=== PATIENT | male | born 1955 | race Caucasian/White ===

== ENCOUNTER 2017-03-06 12:28 | Observation (INO) | payer BC ==
[~2017-03-06] VITALS: Ht 193 cm; Wt 175.4 kg
[~2017-03-06 12:28] MED LIST: AMLODIPINE BESY10 MG PO; ENDOCET 5-3251 EACH PO; FERROUS SULFAT325 MG PO; FLOMAX0.4 MG PO; JANUMET XR 50-1 EAC1 PO; LISINOPRIL20 MG PO; LOVENOX40 MG/0.4 SC; MELOXICAM7.5 MG PO; OMEPRAZOLE20 MG PO; OXYCONTIN10 MG PO; PERCOCET 5/31 TABLET PO; PRAVASTATIN SOD40 MG PO; SENNA-TIME S T1 EACH PO; ULTRAM50 MG PO; VICTOZA 2-0.6 MG/0.1 SC; ZOFRAN ODT8 MG PO
[2017-03-06 12:52] LABS: HEMATOCRIT 43.7 % (38.0-50.0); MCH 29.2 PG (29.0-34.0); MCHC 33.4 G/DL (30.0-36.0); MCV 87.4 FL (86-99); MEAN PLAT.VOLUME 11.9 uM^3 (9.0-12.4); PLATELET COUNT 122 K/uL (156-360); RBC DIS.WIDTH-CV 14.3 % (11.8-14.6); RBC DIS.WIDTH-SD 45.8 % (39-53); WHITE BLOOD COUNT 7.1 K/uL (4.1-10.2)
[2017-03-06 13:00] LABS: CHLORIDE 106 mEq/L (99-109); POTASSIUM 3.9 mEq/L (3.7-5.4); SODIUM 144 mEq/L (136-147)
[2017-03-06 13:02] LABS: GLUCOSE 163 mg/dL (70-99)
[2017-03-06 13:03] LABS: ANION GAP 11 MEQ/L (2-14)
[2017-03-06 13:06] LABS: GFR ESTIMATE (CALCULATED) > 59 mL/min/; UREA NITROGEN (BUN) 20 mg/dL (9-23)
[2017-03-06 13:14] LABS: TROP-I INTERPRETATION NEGATIVE; TROPONIN-I < 0.01 ng/mL (0.0-0.30)
[2017-03-06] MEDS ORDERED: HUMALOG100 UNIT/2 SC (17:03)
[2017-03-06] MEDS ORDERED: TOUJEO SOL300 UNIT/1 SC (17:04)
[2017-03-06 17:34] LABS: TROP-I INTERPRETATION NEGATIVE; TROPONIN-I < 0.01 ng/mL (0.0-0.30)
[2017-03-06 17:36] LABS: HDL CHOLESTEROL 28 MG/DL (Desirable>=40); LDL CHOLESTEROL 67 mg/dL (Desirable<100); NON-HDL CHOLESTEROL 92 mg/dL (Desirable<160); TOTAL CHOLESTEROL 120 mg/dL (Desirable<200); TRIGLYCERIDES 124 MG/DL (Normal: <150)
[2017-03-06 17:42] LABS: Estimated Average Glucose 200 mg/dL (70-123); HEMOGLOBIN A1c (GLYCOHEMOGLOB) 8.6 % HGB (Below 5.7)
[2017-03-06 18:05] VITALS: BP 170/94
[2017-03-06 21:17] VITALS: BP 164/79
[2017-03-07 00:03] VITALS: BP 137/68
[2017-03-07 00:05] LABS: TROP-I INTERPRETATION NEGATIVE; TROPONIN-I < 0.01 ng/mL (0.0-0.30)
[2017-03-07 04:30] VITALS: BP 179/89
[2017-03-07 08:10] VITALS: BP 205/104
[2017-03-07 08:38] LABS: POINT-OF-CARE METER ID UU13113831
[2017-03-07 11:19] VITALS: BP 180/85
[2017-03-07] MEDS ORDERED: APRESOLINE50 MG PO (12:00)
[2017-03-07] MEDS ORDERED: LOPRESSOR25 MG PO (12:01)
[2017-03-07] MEDS ORDERED: OMEPRAZOLE40 M1 PO (12:02)
[2017-03-07] MEDS ORDERED: AUGMENTIN875 MG PO (12:03)
[2017-03-07 12:38] VITALS: BP 163/83
== END 2017-03-07 14:20 | disposition home or self-care (01) ==
LOC: EME 12:28 → EDOF 16:29 → 5WEST 16:29 → EDOF 16:29 → ENRESERV 16:37 → 5WEST 18:02
PROVIDERS: Hospitalist
DX: R07.89 Other chest pain (principal); I10 Essential (primary) hypertension; L03.116 Cellulitis of left lower limb; K21.9 Gastro-esophageal reflux disease without esophagitis; R60.0 Localized edema; E11.65 Type 2 diabetes mellitus with hyperglycemia; I25.10 Atherosclerotic heart disease of native coronary artery without angina pectoris; E78.5 Hyperlipidemia, unspecified; I47.1 Supraventricular tachycardia; E66.01 Morbid (severe) obesity due to excess calories; Z68.41 Body mass index [BMI] 40.0-44.9, adult; F41.9 Anxiety disorder, unspecified; Z63.4 Disappearance and death of family member; Z91.19 Patient's noncompliance with other medical treatment and regimen; Z79.84 Long term (current) use of oral hypoglycemic drugs; Z79.82 Long term (current) use of aspirin
CPT/HCPCS: 71020; 71275; 80048; 80061; 82948; 83036; 83880; 84484; 85027; 85379; 93005; 93306; 93970; 99281; 99285; G0378; J0696; J1650; J1815; J2270; J7030; J7050

== ENCOUNTER 2017-04-25 07:05 | Emergency (ER) | payer BC ==
[~2017-04-25] VITALS: Ht 193 cm; Wt 177.9 kg
[~2017-04-25 07:05] MED LIST changes: +APRESOLINE50 MG PO; +AUGMENTIN875 MG PO; +HUMALOG100 UNIT/2 SC; +LOPRESSOR25 MG PO; +OMEPRAZOLE40 M1 PO; +TOUJEO SOL300 UNIT/1 SC
[2017-04-25 07:58] LABS: HEMATOCRIT 42.9 % (38.0-50.0); MCH 29.3 PG (29.0-34.0); MCHC 33.6 G/DL (30.0-36.0); MCV 87.4 FL (86-99); MEAN PLAT.VOLUME 12.2 uM^3 (9.0-12.4); PLATELET COUNT 126 K/uL (156-360); RBC DIS.WIDTH-CV 14.1 % (11.8-14.6); RBC DIS.WIDTH-SD 45.1 % (39-53); RED BLOOD COUNT 4.91 M/uL (4.00-5.50); WHITE BLOOD COUNT 8.4 K/uL (4.1-10.2)
[2017-04-25 08:10] LABS: PROTHROMBIN TIME 11.5 SEC (10.2-12.9)
[2017-04-25 08:12] LABS: PTT 28.4 SEC (25-37)
[2017-04-25 08:27] LABS: ANION GAP 9 MEQ/L (2-14); CHLORIDE 102 MEQ/L (99-109); POTASSIUM 3.7 MEQ/L (3.7-5.4); SAMPLE HEMOLYSIS CHECK 0; SAMPLE ICTERIC CHECK 0; SAMPLE LIPEMIA CHECK 0; SODIUM 139 MEQ/L (136-147)
[2017-04-25 08:33] LABS: GFR ESTIMATE (CALCULATED) > 59 mL/min/ (58.99-99999); GLUCOSE 159 mg/dL (70-99); UREA NITROGEN (BUN) 19 mg/dL (9-23)
[2017-04-25] MEDS ORDERED: OCEAN GEL14 GM BOTH NARES (08:40)
[2017-04-25] MEDS ORDERED: OCEAN NASAL 0.645 ML BOTH NARES (08:40)
[2017-04-25 08:55] VITALS: BP 158/85
[2017-04-27] MEDS ORDERED: APRESOLINE50 MG PO (13:22)
[2017-04-27] MEDS ORDERED: OMEPRAZOLE40 M1 PO (13:23)
[2017-04-27] MEDS ORDERED: LOPRESSOR25 MG PO (13:23)
== END 2017-04-25 08:56 | disposition home or self-care (01) ==
LOC: EME 07:05
PROVIDERS: Nurse Practitioner Family
DX: R04.0 Epistaxis (principal); I10 Essential (primary) hypertension; E11.65 Type 2 diabetes mellitus with hyperglycemia; D69.6 Thrombocytopenia, unspecified; Z79.4 Long term (current) use of insulin; E78.5 Hyperlipidemia, unspecified; K21.9 Gastro-esophageal reflux disease without esophagitis; Z96.651 Presence of right artificial knee joint
CPT/HCPCS: 80048; 85027; 85610; 85730; 99281; 99284

== ENCOUNTER → 2017-05-01 | Outpatient (CLI) | payer BC ==
[~2017-05-01] VITALS: Ht 193 cm; Wt 175.1 kg
[~2017-05-01] MED LIST changes: +OCEAN GEL14 GM BOTH NARES; +OCEAN NASAL 0.645 ML BOTH NARES
[2017-05-01 12:54] LABS: POINT-OF-CARE METER ID UU14107333
== END | disposition home or self-care (01) ==
LOC: AMB 04-24 13:00
PROVIDERS: Internal Medicine Gastroenterology
DX: Z12.11 Encounter for screening for malignant neoplasm of colon (principal); D12.3 Benign neoplasm of transverse colon; K29.70 Gastritis, unspecified, without bleeding; Z86.010 Personal history of colon polyps; K21.9 Gastro-esophageal reflux disease without esophagitis; R13.10 Dysphagia, unspecified; M19.90 Unspecified osteoarthritis, unspecified site; E78.5 Hyperlipidemia, unspecified; E11.9 Type 2 diabetes mellitus without complications; I10 Essential (primary) hypertension; Z96.651 Presence of right artificial knee joint
CPT/HCPCS: 82948; 88305; 88342 TC

== ENCOUNTER 2017-11-15 17:49 | Observation (INO) | payer BC ==
[~2017-11-15] VITALS: Ht 193 cm; Wt 177.6 kg
[~2017-11-15 17:49] MED LIST changes: -AMLODIPINE BESY10 MG PO; +LISINOPRIL-HCT1 EAC3 PO; -LISINOPRIL20 MG PO; +NORVASC2.5 MG PO
[2017-11-15 18:41] LABS: HEMATOCRIT 41.4 % (38.0-50.0); MCH 29.8 PG (29.0-34.0); MCHC 33.8 G/DL (30.0-36.0); MCV 88.1 FL (86-99); RBC DIS.WIDTH-CV 14.1 % (11.8-14.6); RBC DIS.WIDTH-SD 45.2 % (39-53); WHITE BLOOD COUNT 10.9 K/uL (4.1-10.2)
[2017-11-15 18:54] LABS: CHLORIDE 104 mEq/L (99-109); POTASSIUM 3.8 mEq/L (3.7-5.4); SODIUM 142 mEq/L (136-147)
[2017-11-15 18:56] LABS: GLUCOSE 121 mg/dL (70-99); TOTAL PROTEIN 7.5 g/dL (6.4-8.3)
[2017-11-15 18:58] LABS: TOTAL BILIRUBIN 0.4 mg/dL (0.0-1.0)
[2017-11-15 19:00] LABS: ALKALINE PHOSPHATASE 67 IU/L (3-129); CREATININE 0.9 mg/dL (0.6-1.3); GFR ESTIMATE (CALCULATED) > 59 mL/min/ (58.99-99999)
[2017-11-15 19:02] LABS: AST (GOT) 21 IU/L (2-34); UREA NITROGEN (BUN) 16 mg/dL (9-23)
[2017-11-15 19:03] LABS: ALT (GPT) 23 IU/L (3-49)
[2017-11-15 19:05] LABS: TROP-I INTERPRETATION NEGATIVE; TROPONIN-I 0.02 ng/mL (0.0-0.30)
[2017-11-15 19:26] LABS: PLATELET COUNT 141 K/uL (156-360)
[2017-11-15] MEDS ORDERED: ADULT ASPIRIN R81 MG PO (19:55)
[2017-11-15] MEDS ORDERED: CRESTOR20 MG PO (19:56)
[2017-11-15] MEDS ORDERED: VICTOZA0.6 MG/0.1 SC (19:56)
[2017-11-15] MEDS ORDERED: METOPROLOL SUCC50 MG PO (19:56)
[2017-11-15 21:50] VITALS: BP 185/89
[2017-11-15 23:43] LABS: TROP-I INTERPRETATION NEGATIVE; TROPONIN-I 0.01 ng/mL (0.0-0.30)
[2017-11-16 04:13] VITALS: BP 142/74
[2017-11-16 06:19] LABS: HDL CHOLESTEROL 21 MG/DL (Desirable>=40); LDL CHOLESTEROL 45 mg/dL (Desirable<100); NON-HDL CHOLESTEROL 81 mg/dL (Desirable<160); TOTAL CHOLESTEROL 102 mg/dL (Desirable<200); TRIGLYCERIDES 181 MG/DL (Normal: <150)
[2017-11-16 06:26] LABS: TROP-I INTERPRETATION NEGATIVE; TROPONIN-I < 0.01 ng/mL (0.0-0.30)
[2017-11-16 07:39] VITALS: BP 176/89
[2017-11-16 09:49] VITALS: BP 152/76
[2017-11-16 11:14] LABS: HEMOGLOBIN A1c (GLYCOHEMOGLOB) 7.6 % (Below 5.7)
[2017-11-16 11:24] VITALS: BP 159/88
[2017-11-16] MEDS ORDERED: NITROSTAT0.4 MG SL (11:47)
[2017-11-16] MEDS ORDERED: NORVASC5 MG PO (11:48)
== END 2017-11-16 16:12 | disposition home or self-care (01) ==
LOC: EME 17:49 → EDOF 19:42 → 4SOUTH 19:42 → EDOF 19:42 → ENRESERV 19:53 → 4SOUTH 21:25
PROVIDERS: Hospitalist; Nurse Practitioner Family; Physician Assistant Medical
DX: R07.89 Other chest pain (principal); I10 Essential (primary) hypertension; R94.31 Abnormal electrocardiogram [ECG] [EKG]; I47.1 Supraventricular tachycardia; E11.9 Type 2 diabetes mellitus without complications; Z79.4 Long term (current) use of insulin; E78.5 Hyperlipidemia, unspecified; E66.01 Morbid (severe) obesity due to excess calories; Z68.42 Body mass index [BMI] 45.0-49.9, adult; G47.33 Obstructive sleep apnea (adult) (pediatric); K21.9 Gastro-esophageal reflux disease without esophagitis; G89.29 Other chronic pain; M54.5 Low back pain; R06.09 Other forms of dyspnea; M79.89 Other specified soft tissue disorders; Z79.82 Long term (current) use of aspirin; F19.11 Other psychoactive substance abuse, in remission; F10.21 Alcohol dependence, in remission; Z96.651 Presence of right artificial knee joint; Z87.442 Personal history of urinary calculi; Z83.3 Family history of diabetes mellitus; Z80.1 Family history of malignant neoplasm of trachea, bronchus and lung
CPT/HCPCS: 71046; 71275; 80053; 80061; 82948; 83036; 83880; 84484; 85027; 93005; 94660; 99281; 99285; G0378; J1650; J1815